=== PATIENT | male | born 1980 | race Two or more races ===

== ENCOUNTER 2023-07-01 16:12 | Observation (INO) | payer OTHER ==
--- NOTE | 2023-07-01 16:50 | ED ---
General Adult HPI - General Chief complaint: Chest Pain Stated complaint: Chest pressure Time Seen by Provider: 07/01/23 16:35 Source: patient, RN notes reviewed Mode of arrival: ambulatory Limitations: no limitations - History of Present Illness Initial comments: Patient is a pleasant 42-year-old male presenting to the emergency department with concerns with chest discomfort. Onset of symptoms was yesterday. This was following exerting himself in a stressful phone call. Patient had chest pressure that was severe but only lasted for a few minutes. Patient states there was radiation up to his neck. No history of similar symptoms previously. Today patient still has some minimal discomfort of his neck as well as palpitations. No associated dyspnea, nausea, or diaphoresis. No calf pain or swelling. - Related Data Home Medications Medication Instructions Recorded Confirmed Atorvastatin [Lipitor] 40 mg PO HS 07/01/23 07/01/23 Cetirizine HCl [Zyrtec] 10 mg PO DAILY 07/01/23 07/01/23 Allergies Allergy/AdvReac Type Severity Reaction Status Date / Time amoxicillin [From Amoxil] Allergy Unknown Verified 07/01/23 18:58 codeine Allergy Unknown Verified 07/01/23 18:58 Review of Systems ROS Statement: Those systems with pertinent positive or pertinent negative responses have been documented in the HPI. ROS Other: All systems not noted in ROS Statement are negative. Constitutional: Denies: fever Eyes: Denies: eye pain ENT: Denies: ear pain Respiratory: Denies: cough, dyspnea Cardiovascular: Reports: as per HPI, chest pain, palpitations Endocrine: Denies: fatigue Gastrointestinal: Denies: abdominal pain Musculoskeletal: Denies: back pain Past Medical History History of Any Multi-Drug Resistant Organisms: None Reported Past Surgical History: Ablation Past Psychological History: No Psychological Hx Reported Smoking Status: Never smoker Past Alcohol Use History: Occasional Past Drug Use History: None Reported General Exam Limitations: no limitations General appearance: alert, in no apparent distress Head exam: Present: normocephalic Eye exam: Present: normal appearance Neck exam: Present: normal inspection. Absent: tenderness, lymphadenopathy Respiratory exam: Present: normal lung sounds bilaterally. Absent: chest wall tenderness Cardiovascular Exam: Present: regular rate, normal rhythm, normal heart sounds. Absent: irregular rhythm Expanded Peripheral pulses: 2+: Radial (R), Radial (L), Posterior Tibialis (R), Posterior Tibialis (L) GI/Abdominal exam: Present: soft. Absent: tenderness Extremities exam: Present: normal inspection. Absent: pedal edema, calf tenderness Neurological exam: Present: alert Psychiatric exam: Present: normal affect, normal mood Skin exam: Present: normal color Course Vital Signs 07/01/23 07/01/23 16:20 18:49 Temperature 98.8 F Pulse Rate 73 80 Respiratory 20 18 Rate Blood Pressure 145/93 137/105 O2 Sat by Pulse 97 99 Oximetry EKG Findings - EKG Results: EKG: interpreted by ERMD, sinus rhythm, normal axis, normal QRS, normal ST/T Medical Decision Making - Medical Decision Making Was pt. sent in by a medical professional or institution (, PA, MANAGER URGENT CARE, urgent care, hospital, or correction...) When possible be specific @ -No Did you speak to anyone other than the patient for history (EMS, parent, family, police, friend...)? What history was obtained from this source @ -No Did you review nursing and triage notes (agree or disagree)? Why? @ -I reviewed and agree with nursing and triage notes Were old charts reviewed (outside hosp., previous admission, EMS record, old EKG, old radiological studies, urgent care reports/EKG's, correction records)? Report findings @ -No old charts were reviewed Differential Diagnosis (chest pain, altered mental status, abdominal pain women, abdominal pain men, vaginal bleeding, weakness, fever, dyspnea, syncope, headache, dizziness, GI bleed, back pain, seizure, CVA, palpatations, mental health, musculoskeletal)? @ -Differential Chest Pain: Stable Angina, Unstable Angina, STEMI, NSTEMI Aortic Dissection, Pneumothorax, Musculoskeletal, Esophageal Spasm GERD, Cholecystitis, Pancreatitis, Zoster, this is not meant to be an all-inclusive list. EKG interpreted by me (3pts min.). @ -As above X-rays interpreted by me (1pt min.). @ -Chest x-ray shows no acute process CT interpreted by me (1pt min.). @ -None done U/S interpreted by me (1pt. min.). @ -None done What testing was considered but not performed or refused? (CT, X-rays, U/S, labs)? Why? @ -None What meds were considered but not given or refused? Why? @ -None Did you discuss the management of the patient with other professionals (professionals i.e. DrTien, PA, MANAGER URGENT CARE, lab, RT, psych nurse, social worker aide, rerolling machine operator, teacher, security officer supervisor, correctional casework specialist)? Give summary @ -Case was discussed with Dr. Flores who will admit covering hospital call Was smoking cessation discussed for >3mins.? @ -No Was critical care preformed (if so, how long)? @ -No Were there social determinants of health that impacted care today? How? (Homelessness, low income, unemployed, alcoholism, drug addiction, transportation, low edu. Level, literacy, decrease access to med. care, [facility], rehab)? @ -No Was there de-escalation of care discussed even if they declined (Discuss DNR or withdrawal of care, Hospice)? DNR status @ -No What co-morbidities impacted this encounter? (DM, HTN, Smoking, COPD, CAD, Cancer, CVA, ARF, Chemo, Hep., AIDS, mental health diagnosis, sleep apnea, morbid obesity)? @ -None Was patient admitted / discharged? Hospital course, mention meds given and route, prescriptions, significant lab abnormalities, going to OR and other pertinent info. @ -Patient presents with chest pain. First opponent negative. Patient will be admitted. Orders written. Undiagnosed new problem with uncertain prognosis? @ -No Drug Therapy requiring intensive monitoring for toxicity (Heparin, Nitro, Insulin, Cardizem)? @ -No Were any procedures done? @ -No Diagnosis/symptom? @ -Chest pain Acute, or Chronic, or Acute on Chronic? @ -Acute Uncomplicated (without systemic symptoms) or Complicated (systemic symptoms)? @ -Default Side effects of treatment? @ -No Exacerbation, Progression, or Severe Exacerbation? @ -No Poses a threat to life or bodily function? How? (Chest pain, [place], [place], pneumonia, PE, COPD, DKA, ARF, appy, cholecystitis, CVA, Diverticulitis, Homicidal, Suicidal, threat to staff... and all critical care pts) @ -No - Lab Data Result diagrams: 07/01/23 16:55 07/01/23 16:55 Lab Results 07/01/23 07/01/23 07/01/23 Range/Units 16:55 16:55 16:55 WBC 5.5 (3.8-10.6) k/uL RBC 5.56 (4.30-5.90) m/uL Hgb 16.6 (13.0-17.5) gm/dL Hct 48.9 (39.0-53.0) % MCV 88.0 (80.0-100.0) fL MCH 29.9 (25.0-35.0) pg MCHC 34.0 (31.0-37.0) g/dL RDW 12.8 (11.5-15.5) % Plt Count 173 (150-450) k/uL MPV 8.5 Neutrophils % 58 % Lymphocytes % 24 % Monocytes % 5 % Eosinophils % 12 % Basophils % 1 % Neutrophils # 3.2 (1.3-7.7) k/uL Lymphocytes # 1.3 (1.0-4.8) k/uL Monocytes # 0.3 (0-1.0) k/uL Eosinophils # 0.6 (0-0.7) k/uL Basophils # 0.1 (0-0.2) k/uL PT 11.0 (10.0-12.5) sec INR 1.0 (<1.2) APTT 24.2 (22.0-30.0) sec D-Dimer 0.29 (<0.60) mg/L FEU Sodium 142 (137-145) mmol/L Potassium 4.1 (3.5-5.1) mmol/L Chloride 107 (98-107) mmol/L Carbon Dioxide 23 (22-30) mmol/L Anion Gap 12 mmol/L BUN 10 (9-20) mg/dL Creatinine 0.89 (0.66-1.25) mg/dL Est GFR (CKD-EPI)AfAm >90 (>60 ml/min/1.73 sqM) Est GFR (CKD-EPI)NonAf >90 (>60 ml/min/1.73 sqM) Glucose 91 (74-99) mg/dL Calcium 10.0 (8.4-10.2) mg/dL Magnesium 2.1 (1.6-2.3) mg/dL Total Bilirubin 1.2 (0.2-1.3) mg/dL AST 34 (17-59) U/L ALT 51 H (4-49) U/L Alkaline Phosphatase 94 (38-126) U/L Troponin I (0.000-0.034) ng/mL Total Protein 8.4 H (6.3-8.2) g/dL Albumin 5.1 H (3.5-5.0) g/dL TSH 1.250 (0.465-4.680) mIU/L Free T4 1.16 (0.78-2.19) ng/dL Free T3 pg/mL 4.3 (2.8-5.3) pg/ml 07/01/23 Range/Units 16:55 WBC (3.8-10.6) k/uL RBC (4.30-5.90) m/uL Hgb (13.0-17.5) gm/dL Hct (39.0-53.0) % MCV (80.0-100.0) fL MCH (25.0-35.0) pg MCHC (31.0-37.0) g/dL RDW (11.5-15.5) % Plt Count (150-450) k/uL MPV Neutrophils % % Lymphocytes % % Monocytes % % Eosinophils % % Basophils % % Neutrophils # (1.3-7.7) k/uL Lymphocytes # (1.0-4.8) k/uL Monocytes # (0-1.0) k/uL Eosinophils # (0-0.7) k/uL Basophils # (0-0.2) k/uL PT (10.0-12.5) sec INR (<1.2) APTT (22.0-30.0) sec D-Dimer (<0.60) mg/L FEU Sodium (137-145) mmol/L Potassium (3.5-5.1) mmol/L Chloride (98-107) mmol/L Carbon Dioxide (22-30) mmol/L Anion Gap mmol/L BUN (9-20) mg/dL Creatinine (0.66-1.25) mg/dL Est GFR (CKD-EPI)AfAm (>60 ml/min/1.73 sqM) Est GFR (CKD-EPI)NonAf (>60 ml/min/1.73 sqM) Glucose (74-99) mg/dL Calcium (8.4-10.2) mg/dL Magnesium (1.6-2.3) mg/dL Total Bilirubin (0.2-1.3) mg/dL AST (17-59) U/L ALT (4-49) U/L Alkaline Phosphatase (38-126) U/L Troponin I <0.012 (0.000-0.034) ng/mL Total Protein (6.3-8.2) g/dL Albumin (3.5-5.0) g/dL TSH (0.465-4.680) mIU/L Free T4 (0.78-2.19) ng/dL Free T3 pg/mL (2.8-5.3) pg/ml Disposition Clinical Impression: Chest pain Disposition: ADMITTED IP TO THIS HOSP Is patient prescribed a controlled substance at d/c from ED?: No Referrals: Nonstaff,Physician [Primary Care Provider] - 1-2 days Time of Disposition: 19:20
[2023-07-01] MEDS: ASPIRIN 81 MG PO STA (16:57)
[2023-07-01 17:03] LABS: Basophils # (A) 0.1 k/uL (0-0.2); Basophils % (A) 1 %; Eosinophils # (A) 0.6 k/uL (0-0.7); Eosinophils % (A) 12 %; HCT 48.9 % (39.0-53.0); HGB 16.6 gm/dL (13.0-17.5); Lymphocytes # (A) 1.3 k/uL (1.0-4.8); Lymphocytes % (A) 24 %; MCH 29.9 pg (25.0-35.0); Mean Platelet Volume 8.5; Monocytes # (A) 0.3 k/uL (0-1.0); Monocytes % (A) 5 %; Neutrophils # (A) 3.2 k/uL (1.3-7.7); Neutrophils % (A) 58 %; Platelet Count 173 k/uL (150-450); RBC 5.56 m/uL (4.30-5.90); RDW 12.8 % (11.5-15.5); WBC 5.5 k/uL (3.8-10.6)
--- NOTE | 2023-07-01 17:20 | XR ---
EXAMINATION TYPE: XR chest 2V DATE OF EXAM: 07/01/2023 5:06 PM CLINICAL INDICATION:Male, 42 years old with history of Chest Pain; COMPARISON: None TECHNIQUE: XR chest 2V Frontal and lateral views of the chest. FINDINGS: Lungs/Pleura: There is flattening of the diaphragm with increased lucency of the lungs. No evidence o f pneumothorax, pleural effusion or focal consolidation. Pulmonary vascularity: Unremarkable. Heart/mediastinum: Cardiomediastinal silhouette is unremarkable. Musculoskeletal: No acute osseous pathology. IMPRESSION: No acute cardiopulmonary disease/process.
[2023-07-01 17:21] LABS: Partial Thromboplastin Time 24.2 sec (22.0-30.0)
[2023-07-01 17:29] LABS: ALT 51 U/L (4-49); AST 34 U/L (17-59); African American GFR (CKD) >90 (>60 ml/min/1.73 sqM); Albumin 5.1 g/dL (3.5-5.0); Alkaline Phosphatase 94 U/L (38-126); Anion Gap 12 mmol/L; Blood Urea Nitrogen 10 mg/dL (9-20); Carbon Dioxide 23 mmol/L (22-30); Chloride 107 mmol/L (98-107); Glucose 91 mg/dL (74-99); Magnesium 2.1 mg/dL (1.6-2.3); Non-African American GFR(CKD) >90 (>60 ml/min/1.73 sqM); Potassium 4.1 mmol/L (3.5-5.1); Sodium 142 mmol/L (137-145); Total Bilirubin 1.2 mg/dL (0.2-1.3); Total Protein 8.4 g/dL (6.3-8.2)
[2023-07-01 17:44] LABS: T4, Free (Free Thyroxine) 1.16 ng/dL (0.78-2.19)
[2023-07-01] MEDS ORDERED: NITROGLYCERIN SL TABS 0.4 MG TAB SUBLINGUAL PRN (19:20)
[2023-07-01] MEDS: METOPROLOL TARTRATE 25 MG TAB PO SCH (19:59)
[2023-07-01] MEDS: NITROGLYCERIN OINT 1 INCH/GM PACKET TOPICAL SCH (20:03)
[2023-07-02] MEDS: MELATONIN 5 MG TABLET PO PRN (01:23)
[2023-07-02] MEDS: IBUPROFEN 600 MG TAB PO STA (01:23)
[2023-07-02 08:05] VITALS: RESP 16
[2023-07-02] MEDS: ATORVASTATIN 80 MG TAB PO SCH (09:13)
[2023-07-02] MEDS: ASPIRIN 325 MG TAB PO SCH (09:13)
[2023-07-02 09:53] LABS: Chol/HDL Ratio 3.59 Ratio; LDL Cholesterol,Calculated 168.4 mg/dL (0.0-131.0); VLDL Calculation 17.08 mg/dL (5.00-40.00)
--- NOTE | 2023-07-02 12:09 | P.CRDCN ---
History of Present Illness History of present illness: This is Dr. Narayan dictating an H/P on this patient The patient was interviewed and examined IMPRESSION / ASSESSMENT: 42-year-old male patient under some stress at work and stressful phone call from work Following that severe chest discomfort as he describes it that radiated to the side of his neck It lasted for 2-1/2 minutes according to the patient He had a recurrence once again a little later but it was very brief and mild Non-smoker nonhypertensive nondiabetic no family history of premature coronary artery disease LDL of 168 despite being on atorvastatin 40 mg p.o. daily Dyslipidemia, has been on atorvastatin for several years Normal cardiac enzymes normal twelve-lead EKG No evidence for acute myocardial injury PLAN: Continue atorvastatin at least 40 mg p.o. daily, may consider aspirin I would recommend a stress test either as an inpatient on Tuesday or as an outpatient Patient had immediate questions about his symptoms and about the testing and stated that he would prefer both stress testing and a coronary CT just to be sure. Repeat LDL to confirm that there is truly elevated at 168 mg/dL despite being on atorvastatin HPI Patient was driving. He had been under some stressful situation Thereafter he received a phone call from work which was quite stressful He started experiencing severe chest discomfort that radiated to the neck lasting for 2 to 3 minutes There was a recurrence sometime later but was brief and mild Pain-free at this time Normal cardiac enzymes serially normal EKGs looks very comfortable He is spoken to his [id number] who is a geriatric physician and was told he was going to get a stress test today He is also spoke to another physician from [place] who recommended coronary CTA with calcium scoring The patient would like a stress test as well as CTA with calcium scoring ROS: No fever chills or rigors, no cough, phlegm or expectoration, no nausea, vomiting or diarrhea, no hematuria, dysuria, no musculoskeletal complaints, no strokes or seizures, no skin lesions. EXAMINATION: Afebrile pulse rate in the 70s and 80s normal respirations Blood pressure 115/79 mmHg Normal heart sounds Normal breath sounds REVIEW OF LABS, ECG & MEDICAL DATA Normal white count normal hemoglobin normal platelet count Normal D-dimer Normal electrolytes normal renal function test Elevated total cholesterol at 257 LDL of 168 HDL 71 Normal TSH Past Medical History History of Any Multi-Drug Resistant Organisms: None Reported Past Surgical History: Ablation Additional Past Surgical History / Comment(s): SVT ablation. Past Anesthesia/Blood Transfusion Reactions: No Reported Reaction Past Psychological History: No Psychological Hx Reported Smoking Status: Never smoker Past Alcohol Use History: Occasional Past Drug Use History: None Reported Medications and Allergies Home Medications Medication Instructions Recorded Confirmed Type Atorvastatin [Lipitor] 40 mg PO HS 07/01/23 07/01/23 History Cetirizine HCl [Zyrtec] 10 mg PO DAILY 07/01/23 07/01/23 History Allergies Allergy/AdvReac Type Severity Reaction Status Date / Time amoxicillin [From Amoxil] Allergy Unknown Verified 07/01/23 18:58 codeine Allergy Unknown Verified 07/01/23 18:58 Physical Exam Vitals: Vital Signs Temp Pulse Pulse Resp BP BP Pulse Ox 07/02/23 07:09 97.9 F 75 16 115/71 99 07/02/23 00:53 98.2 F 65 18 115/79 98 07/01/23 21:04 97.9 F 91 20 148/98 99 07/01/23 20:54 95 18 146/90 98 07/01/23 19:54 77 18 139/102 99 07/01/23 18:49 80 18 137/105 99 07/01/23 16:20 98.8 F 73 20 145/93 97 Intake and Output 07/01/23 07/02/23 07/02/23 22:59 06:59 14:59 Intake Total 240 Balance 240 Intake: Oral 240 Other: Voiding Method Toilet # Voids 2 Weight 83.915 kg Results 07/01/23 16:55 07/01/23 16:55 Cardiac Enzymes 07/01/23 07/01/23 07/01/23 Range/Units 16:55 16:55 20:00 AST 34 (17-59) U/L Troponin I <0.012 <0.012 (0.000-0.034) ng/mL Coagulation 07/01/23 Range/Units 16:55 PT 11.0 (10.0-12.5) sec APTT 24.2 (22.0-30.0) sec Lipids 07/01/23 Range/Units 16:55 Triglycerides 85.40 (0.00-149.00) mg/dL Cholesterol 257.00 H (0.00-200.00) mg/dL HDL Cholesterol 71.50 H (40.00-60.00) mg/dL Cholesterol/HDL Ratio 3.59 Ratio CBC 07/01/23 Range/Units 16:55 WBC 5.5 (3.8-10.6) k/uL RBC 5.56 (4.30-5.90) m/uL Hgb 16.6 (13.0-17.5) gm/dL Hct 48.9 (39.0-53.0) % Plt Count 173 (150-450) k/uL Comprehensive Metabolic Panel 07/01/23 Range/Units 16:55 Sodium 142 (137-145) mmol/L Potassium 4.1 (3.5-5.1) mmol/L Chloride 107 (98-107) mmol/L Carbon Dioxide 23 (22-30) mmol/L BUN 10 (9-20) mg/dL Creatinine 0.89 (0.66-1.25) mg/dL Glucose 91 (74-99) mg/dL Calcium 10.0 (8.4-10.2) mg/dL AST 34 (17-59) U/L ALT 51 H (4-49) U/L Alkaline Phosphatase 94 (38-126) U/L Total Protein 8.4 H (6.3-8.2) g/dL Albumin 5.1 H (3.5-5.0) g/dL Current Medications Generic Name Dose Route Start Last Admin Trade Name Freq PRN Reason Stop Dose Admin Aspirin 325 mg 07/02/23 09:00 07/02/23 09:13 Aspirin 325 Mg Tab PO 325 mg DAILY JUAN Administration Atorvastatin Calcium 80 mg 07/02/23 09:00 07/02/23 09:13 Atorvastatin 80 Mg Tab PO 80 mg DAILY JUAN Administration Loratadine 10 mg 07/03/23 09:00 Loratadine 10 Mg Tab PO DAILY JUAN Melatonin 5 mg 07/02/23 01:05 07/02/23 01:23 Melatonin 5 Mg Tablet PO 2.5 mg HS PRN Administration Insomnia Metoprolol Tartrate 25 mg 07/01/23 19:14 07/02/23 09:15 Metoprolol Tartrate 25 Mg Tab PO Not Given BID JUAN Nitroglycerin 0.4 mg 07/01/23 19:20 Nitroglycerin Sl Tabs 0.4 Mg Tab SUBLINGUAL Q5M PRN Chest Pain Nitroglycerin 1 inch 07/01/23 19:30 07/02/23 11:32 Nitroglycerin Oint 1 Inch/Gm Packet TOPICAL Not Given Q6HR JUAN Intake and Output 07/01/23 07/02/23 07/02/23 22:59 06:59 14:59 Intake Total 240 Balance 240 Intake: Oral 240 Other: Voiding Method Toilet # Voids 2 Weight 83.915 kg 07/01/23 16:55 07/01/23 16:55
[2023-07-02 15:08] VITALS: BP 124/84; PULSE 85; TEMP 98.2
[2023-07-03] MEDS ORDERED: LORATADINE 10 MG TAB PO SCH (09:00)
--- NOTE | 2023-07-17 18:36 | P.HPIM ---
History of Present Illness H&P Date: 07/02/23 Chief Complaint: Chest Pain 42-year-old male presenting to the emergency department with concerns with chest discomfort. Onset of symptoms was yesterday. This was following exerting himself in a stressful phone call. Patient had chest pressure that was severe but only lasted for a few minutes. Patient states there was radiation up to his neck. No history of similar symptoms previously. Today patient still has some minimal discomfort of his neck as well as palpitations. No associated dyspnea, nausea, or diaphoresis. No calf pain or swelling. EKG: sinus rhythm, normal axis, normal QRS, normal ST/T -Chest x-ray shows no acute process Review of Systems ROS Other: All systems not noted in ROS Statement are negative. Constitutional: Denies: fever Eyes: Denies: eye pain ENT: Denies: ear pain Respiratory: Denies: cough, dyspnea Cardiovascular: Reports: as per HPI, chest pain, palpitations Endocrine: Denies: fatigue Gastrointestinal: Denies: abdominal pain Musculoskeletal: Denies: back pain Past Medical History History of Any Multi-Drug Resistant Organisms: None Reported Past Surgical History: Ablation Additional Past Surgical History / Comment(s): SVT ablation. Past Anesthesia/Blood Transfusion Reactions: No Reported Reaction Past Psychological History: No Psychological Hx Reported Smoking Status: Never smoker Past Alcohol Use History: Occasional Past Drug Use History: None Reported Medications and Allergies Home Medications Medication Instructions Recorded Confirmed Type Cetirizine HCl [Zyrtec] 10 mg PO DAILY 07/01/23 07/01/23 History Atorvastatin [Lipitor] 80 mg PO DAILY 30 Days #30 tab 07/02/23 Rx Metoprolol Tartrate [Lopressor] 25 mg PO BID 30 Days #60 tab 07/02/23 Rx Allergies Allergy/AdvReac Type Severity Reaction Status Date / Time amoxicillin [From Amoxil] Allergy Unknown Verified 07/01/23 18:58 codeine Allergy Unknown Verified 07/01/23 18:58 Physical Exam Vitals: Vital Signs Temp Pulse Pulse Resp BP BP Pulse Ox 07/02/23 07:09 97.9 F 75 16 115/71 99 07/02/23 00:53 98.2 F 65 18 115/79 98 07/01/23 21:04 97.9 F 91 20 148/98 99 07/01/23 20:54 95 18 146/90 98 07/01/23 19:54 77 18 139/102 99 07/01/23 18:49 80 18 137/105 99 07/01/23 16:20 98.8 F 73 20 145/93 97 Intake and Output 07/01/23 07/02/23 07/02/23 22:59 06:59 14:59 Intake Total 240 Balance 240 Intake: Oral 240 Other: Voiding Method Toilet # Voids 2 Weight 83.915 kg General appearance: alert, in no apparent distress Head exam: Present: normocephalic Eye exam: Present: normal appearance Neck exam: Present: normal inspection. Absent: tenderness, lymphadenopathy Respiratory exam: Present: normal lung sounds bilaterally. Absent: chest wall tenderness Cardiovascular Exam: Present: regular rate, normal rhythm, normal heart sounds. Absent: irregular rhythm Expanded Peripheral pulses: 2+: Radial (R), Radial (L), Posterior Tibialis (R), Posterior Tibialis (L) GI/Abdominal exam: Present: soft. Absent: tenderness Extremities exam: Present: normal inspection. Absent: pedal edema, calf tenderness Neurological exam: Present: alert Psychiatric exam: Present: normal affect, normal mood Skin exam: Present: normal color Results CBC & Chem 7: 07/01/23 16:55 07/01/23 16:55 Labs: Abnormal Lab Results - Last 24 Hours (Table) 07/01/23 07/01/23 Range/Units 16:55 16:55 ALT 51 H (4-49) U/L Total Protein 8.4 H (6.3-8.2) g/dL Albumin 5.1 H (3.5-5.0) g/dL Cholesterol 257.00 H (0.00-200.00) mg/dL LDL Cholesterol, Calc 168.4 H (0.0-131.0) mg/dL HDL Cholesterol 71.50 H (40.00-60.00) mg/dL Thrombosis Risk Factor Assmnt - Choose All That Apply Any of the Below Risk Factors Present?: Yes Each Factor Represents 1 point: Obesity (BMI >25) Thrombosis Risk Factor Assessment Total Risk Factor Score: 1 Thrombosis Risk Factor Assessment Level: Low Risk Assessment and Plan Assessment: Chest pain rule out acute coronary syndrome Hyperlipidemia Patient is evaluated by cardiology and has been ruled out for acute coronary syndrome; recommended stress testing --Patient will do as outpatient
--- NOTE | 2023-07-17 18:37 | P.DS ---
Providers Date of admission: 07/01/23 19:21 Expected date of discharge: 07/02/23 Attending physician: Edinson Cortés MD Consults: 07/01/23 19:20 Consult Physician Urgent Consulting Provider: Jono Lopez Consult Reason/Comments: cp Do you want consulting provider notified?: Yes Primary care physician: Physician Nonstaff Hospital Course: 42-year-old male presenting to the emergency department with concerns with chest discomfort. Onset of symptoms was yesterday. This was following exerting himself in a stressful phone call. Patient had chest pressure that was severe but only lasted for a few minutes. Patient states there was radiation up to his neck. No history of similar symptoms previously. Today patient still has some minimal discomfort of his neck as well as palpitations. No associated dyspnea, nausea, or diaphoresis. No calf pain or swelling. EKG: sinus rhythm, normal axis, normal QRS, normal ST/T -Chest x-ray shows no acute process Chest pain rule out acute coronary syndrome Hyperlipidemia Patient is evaluated by cardiology and has been ruled out for acute coronary syndrome; recommended stress testing --Patient will do as outpatient Patient Condition at Discharge: Good Plan - Discharge Summary New Discharge Prescriptions: New Atorvastatin [Lipitor] 80 mg PO DAILY 30 Days #30 tab Metoprolol Tartrate [Lopressor] 25 mg PO BID 30 Days #60 tab Continue Cetirizine HCl [Zyrtec] 10 mg PO DAILY Discontinued Atorvastatin [Lipitor] 40 mg PO HS Discharge Medication List Cetirizine HCl [Zyrtec] 10 mg PO DAILY 07/01/23 [History] Atorvastatin [Lipitor] 80 mg PO DAILY 30 Days #30 tab 07/02/23 [Rx] Metoprolol Tartrate [Lopressor] 25 mg PO BID 30 Days #60 tab 07/02/23 [Rx] Follow up Appointment(s)/Referral(s): Nonstaff,Physician [Primary Care Provider] - 1-2 days Patient Instructions/Handouts: Chest Pain (DC) Discharge Disposition: HOME SELF-CARE
== END 2023-07-02 14:55 | disposition home or self-care (01) ==
LOC: EC 16:12 → 4SSUR 19:21
PROVIDERS: ADMIT Internal Medicine; ATTEND Internal Medicine
DX: R07.89 Other chest pain (principal); M54.2 Cervicalgia; R00.2 Palpitations; E78.5 Hyperlipidemia, unspecified; F43.9 Reaction to severe stress, unspecified; E66.9 Obesity, unspecified; Z68.31 Body mass index [BMI] 31.0-31.9, adult; Z79.899 Other long term (current) drug therapy; Z88.0 Allergy status to penicillin; Z88.5 Allergy status to narcotic agent
CPT/HCPCS: 99285; 36415; 94760; 93005; 85379; 84439; 84481; 80061; 80053; 83735; 84443; 84484; 85025; 85610; 85730; 71046; G0378 ×2